=== PATIENT | female | born 1995 | race Caucasian/White ===

== ENCOUNTER 2021-12-11 18:10 | Emergency (ER) | payer OTHER, MEDICAID, SELFPAY ==
[2021-12-11] VITALS (14 sets, daily range): BP systolic 86–137; BP diastolic 53–100; PULSE 65–92; RESP 16–24; TEMP 36.6; O2SAT 95–100; BMI 28.1
--- NOTE | 2021-12-11 18:21 | ED_ITS ---
HPI - Seizure General Chief Complaint: Seizure Stated Complaint: Seizure Time Seen by Provider: 12/11/21 18:14 History of Present Illness HPI Narrative: Patient is a 26-year-old female with history of seizures presenting with seizure today. She takes the lamotrigine she says that she took her medicine however EMS reports that she may not have. She took this as a seizures when she is under lot of stress. She was returning on the bus from a doctor appointment after being evaluated for obstructive sleep apnea and CPAP machine. She had a seizure on the bus felt off her seat. She was postictal when EMS arrived she was put in a C-collar and unable to evaluate her C-spine. Glucose was within normal limits. She is awake alert no overall feeling better. She is complaining of some mild lower lumbar pain. Denies any body aches fever or chills. She says that she has insomnia she wakes up every hour she does not sleep great she has been under some stress. Related Data Allergies Allergy/AdvReac Type Severity Reaction Status Date / Time No Known Drug Allergies Allergy Verified 12/11/21 18:27 Review of Systems Review of Systems Narrative: GENERAL: Denies chills, fatigue, malaise, fever, sweats, travel HEENT: Denies sinus pain, ear pain, sore throat, difficulty swallowing, neck pain RESPIRATORY: Denies dyspnea, cough, wheezing, hemoptysis, sputum. CARDIOVASCULAR: Denies chest pain, palpitations, orthopnea, edema GASTROINTESTINAL: Denies nausea, vomiting, abdominal pain, diarrhea, constipation, melena. : Denies dysuria, frequency, incontinence, hematuria, urinary retention, flank pain. MUSCULOSKELETAL: Denies weakness, joint pain, or bony pain SKIN: No rash, no erythema, no pruritus NEUROLOGIC: See HPI PSYCHIATRIC: No concerning psychosocial issues. 12 point review of systems is negative except for those stated above and HPI Patient History Social History Smoking Status: Never smoker Exam Initial Vital Signs Initial Vital Signs: Vital Signs Temperature 97.9 F 12/11/21 18:15 Pulse Rate 84 12/11/21 18:15 Respiratory Rate 16 12/11/21 18:15 Blood Pressure 126/66 12/11/21 18:15 Pulse Oximetry 97 12/11/21 18:15 GENERAL: A alert well-appearing 26 have old female and in no acute distress. HEENT: Head atraumatic,EOMI, pupils reactive, face symmetric, moist mucous membranes NECK: No vertebral tenderness full flexion extension and rotation CARDIOVASCULAR: Regular rate and rhythm without murmurs, rubs or gallops. RESPIRATORY: Breath sounds equal bilaterally, no wheezes rales or rhonchi. ABDOMEN: Soft, nontender. Normoactive bowel sounds all 4 quadrants. No guarding or rebound. EXTREMITIES: Normal range of motion, no clubbing or edema. Neurovascularly intact NEUROLOGICAL: Alert and oriented x4.Normal gait and speech. SKIN: Warm, dry, no laceration, no petechiae, no rashes or lesions. Course Orders Ordered: ED Orders 12/11/21 19:00 CBC Auto Diff [Complete Blood Count AUTO DIFF] Stat CMP [Comprehensive Metabolic Panel] Stat 12/11/21 20:25 Urine Microscopic Stat Discontinued Medications Sodium Chloride (Normal Saline 0.9%) 1,000 mls @ 1,000 mls/hr IV BOLUS ONE Stop: 12/11/21 19:24 Last Infusion: 12/11/21 19:45 Dose: 0 mls/hr Documented by: Admin: 12/11/21 18:43 Dose: 1,000 mls/hr Documented by: KAREL Ketorolac Tromethamine (Ketorolac 30 Mg/Ml Vial) 15 mg IV NOW ONE Stop: 12/11/21 18:26 Last Admin: 12/11/21 18:44 Dose: 15 mg Documented by: KAREL Vital Signs Vital signs: Vital Signs - 8 hr 12/11/21 18:15 12/11/21 18:20 12/11/21 18:30 Temperature 97.9 F Pulse Rate 84 92 H 78 Respiratory Rate 16 24 21 Blood Pressure 126/66 Pulse Oximetry 97 12/11/21 18:37 12/11/21 19:00 12/11/21 19:01 Temperature Pulse Rate 83 71 65 Respiratory Rate 23 24 18 Blood Pressure 121/72 137/100 H Pulse Oximetry 99 98 99 12/11/21 19:07 12/11/21 19:30 12/11/21 19:31 Temperature Pulse Rate 71 66 75 Respiratory Rate 20 16 21 Blood Pressure 106/58 L 89/53 L Pulse Oximetry 98 100 100 12/11/21 19:32 12/11/21 19:34 12/11/21 20:29 Temperature Pulse Rate 67 86 65 Respiratory Rate 20 24 Blood Pressure 86/54 L 112/61 Pulse Oximetry 100 95 100 12/11/21 20:30 12/11/21 20:31 Temperature Pulse Rate 73 67 Respiratory Rate 20 18 Blood Pressure 101/66 109/63 Pulse Oximetry 99 99 MDM - Seizure Lab Data Result diagrams: 12/11/21 19:00 12/11/21 19:00 Labs: Lab Results 12/11/21 12/11/21 12/11/21 Range/Units 19:00 19:00 20:25 WBC 7.7 (4.5-11.0) X10^3/uL RBC 4.30 (4.0-5.2) X10^6/uL Hgb 12.3 (12.0-16.0) g/dL Hct 36.7 (36-46) % MCV 85.3 (80-100) fL MCH 28.6 (26-34) PG MCHC 33.6 (30-36) % RDW 12.6 (11.6-14.8) % Plt Count 305 (150-400) X10^3/uL Neut % (Auto) 71.1 (50-75) % Lymph % (Auto) 20.8 L (25-40) % [place] % (Auto) 7.1 (3-14) % Eos % (Auto) 0.4 L (2-4) % Baso % (Auto) 0.6 (0-2) % Neut # (Auto) 5500 (3824-2412) /uL Lymph # (Auto) 1600 (7543-9560) /uL [place] # (Auto) 500 (0-900) /uL Eos # (Auto) 0 (0-450) /uL Baso # (Auto) 0 (0-100) /uL Sodium 139 (137-145) mmol/L Potassium 4.5 (3.4-5.1) mmol/L Chloride 104 (98-107) mmol/L Carbon Dioxide 26 (22-32) mmol/L BUN 9 (7-17) mg/dL Creatinine 0.78 (0.52-1.04) mg/dL Estimated GFR > 60.0 (>60) mL/min BUN/Creatinine Ratio 11.5 (6-22) Glucose 89 (70-100) mg/dL Calcium 9.1 (8.4-10.2) mg/dL Total Bilirubin 0.2 (0.2-1.3) mg/dL AST 27 (14-36) IU/L ALT 17 (<35) IU/L Alkaline Phosphatase 81 (38-126) U/L Total Protein 7.4 (6.3-8.2) g/dL Albumin 4.4 (3.5-5.0) g/dL Globulin 3.0 (1.7-4.1) g/dL Albumin/Globulin Ratio 1.5 (1.0-2.8) Urine RBC 1-5/hpf (0-5/HPF) Urine WBC None seen (0-5/HPF) Ur Squamous Epith Cells 5-10 /hpf H (0-5/HPF) Amorphous Sediment 1+ Urine Bacteria None seen (None) Ur Culture Indicated? Cult not indicated Point of Care Testing Test Results Negative Urine Dip Bedside Urine Glucose Negative Bedside Urine Bilirubin - Negative Bedside Urine Ketone - Negative Urine Specific [place] 1.025 Bedside Urine Occult Blood +/- Bedside Urine pH 6.0 Bedside Urine Protein +/- 15 Bedside Urine Urobilinogen - Negative Bedside Urine Nitrite - Negative Bedside Urine Leukocytes - Negative Esterase MDM Narrative Medical decision making narrative: The patient has history of seizures in likely had a breakthrough seizure possibly due to stress or insomnia. Sounds she is being worked up for BERNARDA and getting BiPAP machine. Blood work today does not show any abnormality no sign of infection. Recommend the patient follow up with her neurologist. She says that she just some a couple months ago recommend calling him again. Time no changes in medication indicated. He is ambulatory to the restroom without any difficulty and mom is here to pick her up. Discharge Plan Departure Patient Disposition: Home Clinical Impression: Seizure Instructions: DI for Seizure Disorder -- Adult Activity Restrictions/Additional Instructions: *You have been diagnosed with seizure *What to do: At this time breakthrough seizure likely secondary to stress. Please call your neurologist tomorrow to schedule follow-up appointment continue taking seizure medication *Continue to take medications as directed *Follow up with your primary care provider in 2-3 days or call [phone] *Return to ER if you should have recurrent seizure, confusion or any new, w orsening or concerning symptoms
[2021-12-11] MEDS: SODIUM CHLORIDE 0.9% 1,000 ML 1000 ML IV (18:43)
[2021-12-11] MEDS: KETOROLAC 30 MG/ML VIAL 15 MG IV (18:44)
[2021-12-11 19:06] LABS: Add Manual Diff / Slide Review NO; Basophils Absolute Auto 0 /uL (0-100); Basophils Percent Auto 0.6 % (0-2); Eosinophils Absolute Auto 0 /uL (0-450); Eosinophils Percent Auto 0.4 % (2-4); Hematocrit 36.7 % (36-46); Hemoglobin 12.3 g/dL (12.0-16.0); Lymphocytes Absolute Auto 1600 /uL (1100-4500); Lymphocytes Percent Auto 20.8 % (25-40); Mean Corpuscular HGB Conc 33.6 % (30-36); Mean Corpuscular Hemoglobin 28.6 PG (26-34); Mean Corpuscular Volume 85.3 fL (80-100); Monocytes Absolute Auto 500 /uL (0-900); Monocytes Percent Auto 7.1 % (3-14); Neutrophils Absolute Auto 5500 /uL (1500-7000); Neutrophils Percent Auto 71.1 % (50-75); Platelet Count 305 X10^3/uL (150-400); Red Cell Distribution Width 12.6 % (11.6-14.8); White Blood Cell Count 7.7 X10^3/uL (4.5-11.0)
[2021-12-11 19:18] LABS: Alanine Aminotransferase 17 IU/L (<35); Albumin 4.4 g/dL (3.5-5.0); Albumin Globulin Ratio 1.5 (1.0-2.8); Alkaline Phosphatase 81 U/L (38-126); Aspartate Aminotransferase 27 IU/L (14-36); BUN Creatinine Ratio 11.5 (6-22); Bilirubin Total 0.2 mg/dL (0.2-1.3); Blood Urea Nitrogen 9 mg/dL (7-17); Calcium 9.1 mg/dL (8.4-10.2); Carbon Dioxide 26 mmol/L (22-32); Chloride 104 mmol/L (98-107); Estimated Glomerular Filt Rate > 60.0 mL/min (>60); Glucose 89 mg/dL (70-100); HEMOLYSIS < 15 (0-50); Potassium 4.5 mmol/L (3.4-5.1); Sodium 139 mmol/L (137-145); Total Protein 7.4 g/dL (6.3-8.2)
[2021-12-11 20:45] LABS: Amorphous Sediment Urine 1+; Bacteria Urine None Seen; Culture Indicated Urine Cult Not Indicated; RBC Urine 1-5/HPF (0-5/HPF); Squamous Epithelial Cell Urine 5-10 /HPF (0-5/HPF); WBC Urine None Seen (0-5/HPF)
== END 2021-12-11 20:57 | disposition home or self-care (01) ==
PROVIDERS: Emergency Provider Emergency Medicine
DX: G40.909 Epilepsy, unspecified, not intractable, without status epilepticus (principal)
CPT/HCPCS: 36415; 80053; 81003; 81015; 81025; 85025; 96361; 96374; 99283; 99284; J1885